=== PATIENT | female | born 1965 | race Caucasian/White ===

== ENCOUNTER 2018-10-07 12:06 | Emergency (ER) | payer OTHER ==
--- NOTE | 2018-10-07 13:02 | EDPHY ---
H & P Stated Complaint: w/c right knee injury three weeks ago, increased pain Time Seen by Provider: 10/07/18 12:52 HPI/ROS: CHIEF COMPLAINT: Right knee pain HISTORY OF PRESENT ILLNESS: Patient is a 53-year-old female who comes to the emergency department complaining of pain in her medial right knee. She states that on September 12 she twisted it at work. She did not seek treatment but got a neoprene sleeve to wear. She states that her knee swelled up diffusely circumferentially. Over the next few weeks the swelling is gradually resolved except for a knot on the medial aspect. It had not really bothered her and she had been able to ambulate and work without difficulty however last night while in bed it began to ache and hurt. It does not hurt to bend her knee or weightbare. Her knee has not felt unstable. She does have a history of DVTs and the same calf after sitting in a tight massage chair. She was on Xarelto for 3 months and followed by Hematology but has been off of blood thinners for several months now other than baby aspirin. No fevers. No rashes. No other injuries. Severity: Moderate Modifying factors: None REVIEW OF SYSTEMS: Constitutional: denies: chills, fever, recent illness, recent injury EENTM: denies: blurred vision, double vision, nose congestion Respiratory: denies: cough, shortness of breath Cardiac: denies: chest pain, irregular heart rate, lightheadedness, palpitations Gastrointestinal/Abdominal: denies: abdominal pain, diarrhea, nausea, vomiting, blood streaked stools Genitourinary: denies: dysuria, frequency, hematuria, pain Musculoskeletal: See HPI Skin: denies: lesions, rash, jaundice, bruising Neurological: denies: headache, numbness, paresthesia, tingling, dizziness, weakness Hematologic/Lymphatic: denies: blood clots, easy bleeding, easy bruising Immunologic/allergic: denies: HIV/AIDS, transplant 10 systems reviewed and negative except as noted EXAM: GENERAL: Well-appearing, well-nourished and in no acute distress. HEAD: Atraumatic, normocephalic. EYES: Pupils equal round and reactive to light, extraocular movements intact, sclera anicteric, conjunctiva are normal. ENT: TMs normal, nares patent, oropharynx clear without exudates. Moist mucous membranes. NECK: Normal range of motion, supple without lymphadenopathy or JVD. LUNGS: Breath sounds clear to auscultation bilaterally and equal. No wheezes rales or rhonchi. HEART: Regular rate and rhythm without murmurs, rubs or gallops. ABDOMEN: Soft, nontender, normoactive bowel sounds. No guarding, no rebound. No masses appreciated. BACK: No CVA tenderness, no spinal tenderness, step-offs or deformities EXTREMITIES: Right knee pain, tender lump to medial aspect of knee. No calf or thigh pain. No erythema or warmth. No pain with range of motion of knee or weight-bearing. No laxity appreciated on exam. NEUROLOGICAL: Cranial nerves II through XII grossly intact. Normal speech, normal gait. 5/5 strength, normal movement in all extremities, normal sensation , normal reflexes PSYCH: Normal mood, normal affect. SKIN: See above, Warm, dry, normal turgor, no visible rashes or lesions. Source: Patient Exam Limitations: No limitations - Personal History LMP (Females 10-55): 8-14 Days Ago Current Tetanus/Diphtheria Vaccine: Yes Current Tetanus Diphtheria and Acellular Pertussis (TDAP): Yes - Medical/Surgical History Hx Asthma: No Hx Chronic Respiratory Disease: No Hx Diabetes: No Hx Cardiac Disease: No Hx Renal Disease: No Hx Cirrhosis: No Hx Alcoholism: No Hx HIV/AIDS: No Hx Splenectomy or Spleen Trauma: No Other PMH: DVT, recent vericose vein removal. - Family History Significant Family History: No pertinent family hx - Social History Smoking Status: Former smoker Alcohol Use: Sober Constitutional: Initial Vital Signs Temperature (C) 36.6 C 10/07/18 12:28 Heart Rate 74 10/07/18 12:28 Respiratory Rate 12 10/07/18 12:28 Blood Pressure 119/68 10/07/18 12:28 O2 Sat (%) 100 10/07/18 12:28 O2 Delivery Mode Room Air Allergies/Adverse Reactions: venlafaxine [From Effexor] Adverse Reaction (Intermediate, Verified 10/07/18 12: 37) Tetracyclines Adverse Reaction (Mild, Verified 10/07/18 12:36) Home Medications: Medication Instructions Recorded Aspirin [Aspirin 81mg (*)] 10/07/18 FLUoxetine 10/07/18 Ferrous Gluconate [Iron] 10/07/18 Fluticasone Nasal [Flonase Nasal 10/07/18 [place]] Lutein 10/07/18 Multivitamin [One Daily] 10/07/18 Medical Decision Making - Diagnostics Imaging: Discussed imaging studies w/ magnetic locater Radiologist ED Course/Re-evaluation: 1:30 p.m. We discussed the patient's x-ray results. There does not appear to be a calcified hematoma. We agreed to perform ultrasound to evaluate for fluid or possible debris and to rule out DVT. 2:30 p.m. we discussed the the ultrasound results. I performed bedside ultrasound guided drainage of the seroma. Serosanguineous fluid was obtained and sent to the lab for cultures. Patient feels much better. Will wrap with compressive dressing in encouraged conservative management. Discussed symptoms to watch for infection and indications for returning to the ER. Differential Diagnosis: Partial list of the Differential diagnosis considered include but were not limited to; seroma, calcified hematoma, and although unlikely based on the history and physical exam, I also considered DVT, fracture. I discussed these differential diagnoses and the plan with the patient as well as the usual and expected course. The patient understands that the diagnosis is provisional and that in medicine we are not always correct and that further workup is often warranted. Usual and customary warnings were given. All of the patient's questions were answered. The patient was instructed to return to the emergency department should the symptoms at all worsen or return, otherwise to followup with the physician as we discussed. - Data Points Microbiology Results: MICROBIOLOGY 10/07/18 14:30 Knee - Aspirate Gram Stain - Final 10/07/18 14:30 Knee - Aspirate Anaerobic Culture - Preliminary Departure - Departure Disposition: Home, Routine, Self-Care Clinical Impression: Seroma due to trauma Condition: Fair Instructions: Seroma (DC) Referrals: MARIA ELENA CASTORENA [Primary Care Provider] - As per Instructions
[2018-10-07 14:40] VITALS: BP 119/69
== END 2018-10-07 14:47 | disposition home or self-care (01) ==
LOC: CED 12:06
PROC: 0H9KXZZ Drainage of Right Lower Leg Skin, External Approach (ICD-10-PCS; principal; 2018-10-07)
DX: T79.2XXA Traumatic secondary and recurrent hemorrhage and seroma, initial encounter (principal); X50.1XXA Overexertion from prolonged static or awkward postures, initial encounter; Y99.0 Civilian activity done for income or pay
CPT/HCPCS: 73562-PO; 93971-PO; 99285-ER